=== PATIENT | female | born 1975 | race African-American/Black ===

== ENCOUNTER 2017-07-01 15:25 | Emergency (ER) | payer BC ==
[~2017-07-01] VITALS: Ht 170.2 cm; Wt 115.9 kg
[~2017-07-01 15:25] MED LIST: ALBU8I INH; LEVA750T PO; LISI20 PO; LORA10 PO; NIFE1TAB86 PO; PRED10 PO
[2017-07-01 15:26] VITALS: BP 161/79; PULSE 102; RESP 14; TEMP 98.5; O2SAT 100
[2017-07-01] MEDS ORDERED: FURO1TAB62 PO (15:47)
[2017-07-01] MEDS ORDERED: AMLO5TAB2 PO (15:47)
--- NOTE | 2017-07-01 16:07 | PD ---
HPI Chief Complaint: Cold / Flu Symptoms Time Seen by Provider: 15:44 Travel History International Travel<30 days: No Contact w/Intl Traveler<30days: No Traveled to known affect area: No History of Present Illness HPI 42-year-old female presents to the emergency room for evaluation of sore throat , headache, and body aches that started last night. Patient has had no associated congestion, cough, or objective fevers. States she has been taking Tylenol without significant relief in symptoms. States the headache is frontal , gradual onset, caused by her sore throat. She has been eating and drinking okay. 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.) Social History Alcohol Use: No Tobacco Use: No Substance Use: No Allergies-Medications (Allergen,Severity, Reaction): Coded Allergies: propoxyphene (Unverified Allergy, Severe, Hallucinations, 02/11/17) acetaminophen (Unverified Allergy, Intermediate, Hallucinations, 02/11/17) oxycodone (Unverified Allergy, Intermediate, Hallucinations, 02/11/17) *MDRO Multi-Drug Resistant Organism (Verified Allergy, Unknown, 07/11/15) MRSA (thigh wound) - 04/2005 MRSA PCR Screen NEGATIVE - 07/07/2015, 07/10/2015 CLEARED PER INFECTION CONTROL Reported Meds & Prescriptions Reported Meds & Active Scripts Active Reported Amlodipine (Amlodipine Besylate) 5 Mg Tab 5 Mg PO DAILY Lasix (Furosemide) 20 Mg Tab 25 Mg PO DAILY Review of Systems Except as stated in HPI: all other systems reviewed are Neg Physical Exam Narrative GENERAL: Well-nourished, well-developed female in no acute distress. Afebrile. Ambulatory. SKIN: Focused skin assessment warm/dry. HEAD: Normocephalic. EYES: No scleral icterus. No injection or drainage. ENT: Mucosa pink and moist. Moderate erythematous pharynx without significant edema. No uvular, palatal, or tonsillar deviation. Airway patent. Nasal turbinates appear normal without nasal blood, purulent drainage or septal hematoma. EARS: Bilateral pinnae and external canals appear within normal limits. Bilateral tympanic membranes without erythema, dullness or perforation. CARDIOVASCULAR: Regular rate and rhythm without murmurs, gallops, or rubs. RESPIRATORY: Breath sounds equal bilaterally. No accessory muscle use. No crackles, rales, wheezes, or rhonchi. Data Data Last Documented VS Vital Signs Date Time Temp Pulse Resp B/P (MAP) Pulse Ox O2 Delivery O2 Flow Rate FiO2 07/01/17 15:26 98.5 102 14 161/79 (106) 100 Orders Orders Group A Rapid Strep Screen (07/01/17 16:01) Strep Culture (Group A) (07/01/17 16:03) Ed Discharge Order (07/01/17 16:32) MDM Medical Decision Making Medical Screen Exam Complete: Yes Emergency Medical Condition: Yes Medical Record Reviewed: Yes Differential Diagnosis Strep throat, upper respiratory infection pneumonia, influenza Narrative Course 42-year-old female presents to the emergency room for evaluation of sore throat , headache, and body aches since last night. No objective fevers. Physical exam reveals moderate erythema of the pharynx without edema or exudates. Rapid strep is negative. This is viral pharyngitis. Patient discharged with Magic mouthwash and told to follow up with PCP or return for worsening symptoms. She understands and agrees to plan. Diagnosis Primary Impression: Viral pharyngitis Referrals: Primary Care Physician Additional Instructions: Magic mouthwash as directed, as needed for pain. Take ibuprofen with food as directed, as needed for pain. Follow-up with a primary care physician. Return to the emergency room for worsening symptoms. Disposition: 01 DISCHARGE HOME Condition: Stable Vianney Diamond Jul 01, 2017 16:07
[2017-07-01] MEDS ORDERED: MAGICPED SWISH-SWAL (16:34)
== END 2017-07-01 17:08 | disposition home or self-care (01) ==
LOC: NEPK 15:25
DX: J02.8 Acute pharyngitis due to other specified organisms (principal); B97.89 Other viral agents as the cause of diseases classified elsewhere; I10 Essential (primary) hypertension
CPT/HCPCS: 87081; 87880; 99283

== ENCOUNTER 2017-10-08 08:29 | Emergency (ER) | payer BC ==
[~2017-10-08] VITALS: Ht 170.2 cm; Wt 100.0 kg
[~2017-10-08 08:29] MED LIST changes: -ALBU8I INH; +AMLO5TAB2 PO; +FURO1TAB62 PO; -LEVA750T PO; -LISI20 PO; -LORA10 PO; +MAGICPED SWISH-SWAL; -NIFE1TAB86 PO; -PRED10 PO
[2017-10-08 08:40] VITALS: BP 197/104; PULSE 84; RESP 17; TEMP 98; O2SAT 100
--- NOTE | 2017-10-08 08:57 | PD ---
HPI Chief Complaint: ENT Complaint Time Seen by Provider: 08:47 Travel History International Travel<30 days: No Contact w/Intl Traveler<30days: No Traveled to known affect area: No History of Present Illness HPI 42-year-old female presents to the emergency department with complaint of sore throat, nasal congestion and chills since yesterday. Reports nausea without vomiting. Denies fever, cough, ear pain. Denies lump in throat, difficulty swallowing, unusual drooling. Reports painful swallowing. No others with similar symptoms. Rates sore throat 9/10. Worse with swallowing. Better with Luden sore throat drops. Has tried taking Claritin also. Allergies to Darvocet. Primary care provider is Dr. Reddy. History of hypertension and takes amlodipine 5 mg, which she has not taken this morning. Has no other medical complaints. No other modifying factors or associated signs and symptoms. PFSH Past Medical History Asthma: Yes Cancer: No Cardiovascular Problems: No Chest Pain: No Cerebrovascular Accident: No Diabetes: No Diminished Hearing: No Gastrointestinal Disorders: No Glaucoma: No Hepatitis: No Hiatal Hernia: No Hypertension: Yes Respiratory: Yes (asthma) Integumentary: No Myocardial Infarction: No Thyroid Disease: No ?: Not : 2 Para: 0 Miscarriage: 2 Past Surgical History Other Surgery: Yes (BENIGN TUMOR REMOVED FROM RIGHT BREAST AGE 18 [place] 1991.) Social History Alcohol Use: No Tobacco Use: No Substance Use: No Allergies-Medications (Allergen,Severity, Reaction): Coded Allergies: propoxyphene (Unverified Allergy, Severe, Hallucinations, 10/08/17) acetaminophen (Unverified Allergy, Intermediate, Hallucinations, 10/08/17) oxycodone (Unverified Allergy, Intermediate, Hallucinations, 10/08/17) *MDRO Multi-Drug Resistant Organism (Verified Allergy, Unknown, 10/08/17) MRSA (thigh wound) - 04/2005 MRSA PCR Screen NEGATIVE - 07/07/2015, 07/10/2015 CLEARED PER INFECTION CONTROL Reported Meds & Prescriptions Reported Meds & Active Scripts Active Reported Amlodipine (Amlodipine Besylate) 5 Mg Tab 5 Mg PO DAILY Lasix (Furosemide) 20 Mg Tab 25 Mg PO DAILY Review of Systems Except as stated in HPI: all other systems reviewed are Neg Physical Exam Narrative GENERAL: Well-nourished, well-developed black female patient, in no acute distress; afebrile, nontoxic-appearing SKIN: Warm and dry. No rash. HEAD: Atraumatic. Normocephalic. EYES: Pupils equal and round. No scleral icterus. No injection or drainage. ENT: Mucosa pink and moist. Oropharynx with erythema; without edema or exudates. No uvular edema. No uvular, palatal, or tonsillar deviation. Airway patent. EARS: Bilateral pinnae and external canals appear within normal limits. Bilateral tympanic membranes without erythema, dullness or perforation. NECK: Trachea midline. No lymphadenopathy. CARDIOVASCULAR: Regular rate and rhythm. No murmur appreciated. RESPIRATORY: No accessory muscle use. Clear to auscultation. Breath sounds equal bilaterally. No retractions or tachypnea. GASTROINTESTINAL: Abdomen soft, non-tender, nondistended. Hepatic and splenic margins not palpable. Bowel sounds are active 4 quadrants. MUSCULOSKELETAL: No obvious deformities. No clubbing. No cyanosis. No edema. NEUROLOGICAL: Awake and alert. Oriented 3. No obvious cranial nerve deficits. Motor grossly within normal limits. Normal speech. Moves all extremities. 5/5 strength to all extremities. PSYCHIATRIC: Appropriate mood and affect; insight and judgment normal. Data Data Last Documented VS Vital Signs Date Time Temp Pulse Resp B/P (MAP) Pulse Ox O2 Delivery O2 Flow Rate FiO2 10/08/17 08:40 98.0 84 17 197/104 (135) 100 Orders Orders Ibuprofen (Motrin) (10/08/17 09:00) Amlodipine (Norvasc) (10/08/17 09:00) Group A Rapid Strep Screen (10/08/17 08:54) Strep Culture (Group A) (10/08/17 08:52) [facility] Medical Decision Making Medical Screen Exam Complete: Yes Emergency Medical Condition: Yes Medical Record Reviewed: Yes Differential Diagnosis Strep pharyngitis, viral pharyngitis, viral illness, less likely peritonsillar abscess Narrative Course 42-year-old female with cold symptoms and complaining of sore throat. Patient is afebrile and nontoxic-appearing. Denies fever, vomiting. Ibuprofen and rapid strep ordered. Patient has history of hypertension and did not take her amlodipine 5 mg this morning. She is asymptomatic. Blood pressure is elevated in the ER. Amlodipine ordered. 941: Rapid strep negative. Patient is requesting antibiotics because last time she had her throat swabbed they called her after 2 days and said that she had strep throat culture and an antibiotic. I will prescribe antibiotics at patient's request. Amoxicillin, Magic mouthwash, ibuprofen prescribed for home. Instructed patient to follow up with primary care provider. Patient verbalizes understanding and agreement with treatment plan. Patient is medically cleared and stable for discharge. Discussed reasons to return to the emergency department. Patient agrees with treatment plan. The patients vital signs are stable and the patient is stable for outpatient follow-up and treatment. Patient discharged home, stable and in no acute distress. Diagnosis Primary Impression: Viral illness Referrals: [facility] Primary Care Physician Patient Instructions: General Instructions, Pharyngitis (ED) Departure Forms: Tests/Procedures, Work Release Enter return to work date: Oct 10, 2017 Additional Instructions: Take Antibiotics as prescribed and complete full course of antibiotics Throw away and change your toothbrush 24 hours after starting antibiotics Get plenty of sleep/rest Rest your voice Drink plenty of fluids to prevent dehydration Use warm saltwater gargles to soothe throat pain Use an air humidifier/turn off ceiling fans Use throat lozenges as needed for sore throat Use ibuprofen or acetaminophen as needed to relieve pain and fever Follow-up with your primary care provider within 2-4 days Return immediately to the emergency department with worsening of symptoms Med/Other Pt SpecificInfo: Prescription(s) given Scripts Ibuprofen (Ibuprofen) 800 Mg Tab 800 MG PO Q6HR Y for PAIN, #30 TAB 0 Refills Prov: Tosin Christian 10/08/17 Bwonhwybwqxwhid-Fwjuvnxlo-Ivg-Alum-Simeth Liq (Magic Mouthwash Pediatric/Adult Liq) 60 Ml Susp 5 ML SWISH-SWAL Q3HR Y for SORE THROAT, #60 ML 0 Refills Each 5mL contains: Diphenydramine 4.5mg, Viscous Lidocaine 2% 10mg, Maalox Advanced Regular Strength 2.7ml Prov: Tosin Christian 10/08/17 Amoxicillin (Amoxicillin) 500 Mg Cap 500 MG PO BID for Infection for 10 Days, #20 CAP 0 Refills Prov: Tosin Christian 10/08/17 Disposition: DISCHARGE HOME Condition: Stable Tosin Christian Oct 08, 2017 08:57
[2017-10-08] MEDS ORDERED: IBUPROFEN 800 MG TAB PO ONE (09:00)
[2017-10-08] MEDS ORDERED: amLODIPine BESYLATE 5 MG TAB PO ONE (09:00)
[2017-10-08] MEDS ORDERED: IBUP1TAB7 PO (09:40)
[2017-10-08] MEDS ORDERED: AMOX500C PO (09:40)
[2017-10-08] MEDS ORDERED: MAGICPED SWISH-SWAL (09:40)
[2017-10-08 09:50] VITALS: BP_SYST 150; BP_SYST 168; BP_DIAS 97; PULSE 98; RESP 14; O2SAT 98
== END 2017-10-08 10:06 | disposition home or self-care (01) ==
LOC: NEPD 08:29
DX: B34.9 Viral infection, unspecified (principal); I10 Essential (primary) hypertension; J45.909 Unspecified asthma, uncomplicated; Z79.899 Other long term (current) drug therapy; Z88.8 Allergy status to other drugs, medicaments and biological substances
CPT/HCPCS: 87081; 87880; 99283

== ENCOUNTER 2017-10-22 05:22 | Emergency (ER) | payer BC ==
[~2017-10-22] VITALS: Ht 170.2 cm; Wt 116.4 kg
[~2017-10-22 05:22] MED LIST changes: +AMOX500C PO; +IBUP1TAB7 PO
[2017-10-22 05:25] VITALS: BP 178/89; PULSE 95; RESP 18; TEMP 98.2; O2SAT 98
[2017-10-22] MEDS ORDERED: predniSONE 50 MG TAB PO ONE (05:45)
[2017-10-22] MEDS ORDERED: guaiFENesin/DEXTROMETHORPHAN 200 MG/20 MG/10 ML CUP PO ONE (05:45)
[2017-10-22] MEDS ORDERED: ONDANSETRON ODT 4 MG TAB PO ONE (05:45)
--- NOTE | 2017-10-22 05:53 | PD ---
HPI Chief Complaint: Cold / Flu Symptoms Time Seen by Provider: 05:33 Travel History International Travel<30 days: No Contact w/Intl Traveler<30days: No Traveled to known affect area: No History of Present Illness HPI 42yo F with PMH of asthma presents to the ED with c/o cough, throat pain for 2 days. Said she is losing her voice and that she felt sob today so started her nebulizer but felt nauseous and vomited. Pt feels a little sob and tightness in her chest like her asthma. Also feels sharp midsternal chest pain when she coughs. Denies any drooling, fever, abdominal pain, focal weakness or numbness. Took ibuprofen 2 days ago which helped with the pain. Pt was here 05/17 and diagnose with viral syndrome and discharge with amoxicillin and magic mouth wash. PFSH Past Medical History Asthma: Yes Heart Rhythm Problems: Yes (valve leaking in heart) Cancer: No Cardiovascular Problems: No Chest Pain: No Cerebrovascular Accident: No Diabetes: No Diminished Hearing: No Gastrointestinal Disorders: No Glaucoma: No Hepatitis: No Hiatal Hernia: No Hypertension: Yes Respiratory: Yes (asthma) Integumentary: No Myocardial Infarction: No Thyroid Disease: No Tetanus Vaccination: < 5 Years ?: Not LMP: 10/21/2017 : 2 Para: 0 Miscarriage: 2 Past Surgical History Other Surgery: Yes (BENIGN TUMOR REMOVED FROM RIGHT BREAST AGE 18 [place] 1991.) Social History Alcohol Use: No Tobacco Use: No Substance Use: No Allergies-Medications (Allergen,Severity, Reaction): Coded Allergies: propoxyphene (Unverified Allergy, Severe, Hallucinations, 10/22/17) *MDRO Multi-Drug Resistant Organism (Verified Allergy, Unknown, 10/22/17) MRSA (thigh wound) - 04/2005 MRSA PCR Screen NEGATIVE - 07/07/2015, 07/10/2015 CLEARED PER INFECTION CONTROL Reported Meds & Prescriptions Reported Meds & Active Scripts Active Ibuprofen 800 Mg Tab 800 Mg PO Q6HR PRN Magic Mouthwash Pediatric/Adult Liq (Lidocaine/Diphenhydr/Alum/Mg/Simeth) 60 Ml Susp 5 Ml SWISH-SWAL Q3HR PRN Each 5mL contains: Diphenydramine 4.5mg, Viscous Lidocaine 2% 10mg, Maalox Advanced Regular Strength 2.7ml Amoxicillin 500 Mg Cap 500 Mg PO BID 10 Days Reported Amlodipine (Amlodipine Besylate) 5 Mg Tab 5 Mg PO DAILY Lasix (Furosemide) 20 Mg Tab 25 Mg PO DAILY Review of Systems Except as stated in HPI: all other systems reviewed are Neg Physical Exam Narrative GENERAL: 42yo F in mild distress. SKIN: Focused skin assessment warm/dry. HEAD: Atraumatic. Normocephalic. EYES: Pupils equal and round. No scleral icterus. No injection or drainage. ENT: Throat: Uvula midline. Mild erythema. No exudate. NECK: No nuchal rigidity. No ttp anterior cervical lymph node. CARDIOVASCULAR: Regular rate and rhythm. No murmur appreciated. RESPIRATORY: No accessory muscle use. Clear to auscultation. Breath sounds equal bilaterally. GASTROINTESTINAL: Abdomen soft, non-tender, nondistended. MUSCULOSKELETAL: No obvious deformities. No clubbing. No cyanosis. No edema. NEUROLOGICAL: Awake and alert. No obvious cranial nerve deficits. Motor grossly within normal limits. Normal speech. PSYCHIATRIC: Appropriate mood and affect; insight and judgment normal. Data Data Last Documented VS Vital Signs Date Time Temp Pulse Resp B/P (MAP) Pulse Ox O2 Delivery O2 Flow Rate FiO2 10/22/17 05:25 98.2 95 18 178/89 (118) 98 Orders Orders Electrocardiogram (10/22/17 ) Chest, Single Ap (10/22/17 ) Albuterol-Ipratropium Neb (Duoneb Neb) (10/22/17 05:45) Prednisone (Deltasone) (10/22/17 05:45) Ondansetron Odt (Zofran Odt) (10/22/17 05:45) Guaifen-Dm 200-20 Mg/10 Ml Liq (Robituss (10/22/17 05:45) Influenzae A/B Antigen (10/22/17 05:42) MDM Medical Decision Making Medical Screen Exam Complete: Yes Emergency Medical Condition: Yes Interpretation(s) EKG: Sinus tachycardia at 111bpm. Normal axis. LVH. TWI V5, V6, not new. Differential Diagnosis Bronchitis vs. URI vs. pneumonia vs. asthma exacerbation vs. pharyngitis Narrative Course 42yo F with URI like symptoms. Pt only with chest pain when she coughs. Do not think this is cardiac. Influenza negative. CXR showed no acute disease. Pt given duonebs x3 and prednisone as well as robitussin. Pt feels better and wants to go home. Diagnosis Primary Impression: URI (upper respiratory infection) Qualified Codes: J06.9 - Acute upper respiratory infection, unspecified Patient Instructions: General Instructions Departure Forms: Tests/Procedures Additional Instructions: Please follow up with your primary care physician in 2-3 days. Return to the ED if symptoms worsen. Med/Other Pt SpecificInfo: Prescription(s) given Scripts Dextromethorphan (Robitussin Lingering Cold) 15 Mg Cap 30 MG PO Q8H Y for COUGH for 5 Days, #30 CAP 0 Refills Prov: Hawa Lima DO 10/22/17 Prednisone (Prednisone) 50 Mg Tab 50 MG PO DAILY for 5 Days, #5 TAB 0 Refills Prov: Hawa Lima DO 10/22/17 Albuterol 18 GM Inh (Ventolin Hfa 18 GM Inh) 90 Mcg/Act Aer 2 PUFF INH Q4H Y for SHORTNESS OF BREATH, #1 INHALER 0 Refills Prov: Hawa Lima DO 10/22/17 Disposition: 01 DISCHARGE HOME Condition: Stable Hawa Lima DO Oct 22, 2017 05:53
[2017-10-22] MEDS: RESP: ALBUTEROL 2.5 MG/IPRATROPIUM 0.5 MG NEB (SCH) INH ×2 (06:07→06:08)
--- NOTE | 2017-10-22 06:09 | RADRPT ---
EXAM DATE/TIME: 10/22/2017 05:50 [facility] COMPARISON: CHEST SINGLE AP, July 08, 2015, 3:33. INDICATIONS : Cough, sore throat. MEDICAL HISTORY : None. SURGICAL HISTORY : None. ENCOUNTER: Initial ACUITY: 1 day PAIN SCORE: 0/10 LOCATION: Bilateral chest FINDINGS: A single view of the chest demonstrates the lungs to be symmetrically aerated without evidence of mas s, infiltrate or effusion. The cardiomediastinal contours are unremarkable. Osseous structures are intact. CONCLUSION: No acute disease. Tushar Zimmerman MD on October 22, 2017 at 6:07 Board Certified Radiologist. This report was verified electronically.
[2017-10-22] MEDS ORDERED: ROBICAP2 PO (06:53)
[2017-10-22] MEDS ORDERED: VENTAER INH (06:53)
[2017-10-22] MEDS ORDERED: PRED50 PO (06:53)
[2017-10-22 07:03] VITALS: BP 184/96
--- NOTE | 2017-10-22 08:46 | EKG ---
Date Performed: 10/22/2017 Time Performed: 06:36:50 PTAGE: 42 years EKG: SINUS TACHYCARDIA WITH OCCASIONAL VENTRICULAR PREMATURE COMPLEXES VOLTAGE CRITERIA FOR LVH NONSPECIFIC T-WAVE ABNORMALITY ABNORMAL ECG NO PREVIOUS TRACING DOCTOR: Jakub Cabrales Interpretating Date/Time 10/22/2017 08:45:02
== END 2017-10-22 07:05 | disposition home or self-care (01) ==
LOC: NEPC 05:22
DX: J06.9 Acute upper respiratory infection, unspecified (principal); R05 Cough; R06.02 Shortness of breath; R11.2 Nausea with vomiting, unspecified; R07.9 Chest pain, unspecified; R94.31 Abnormal electrocardiogram [ECG] [EKG]; I10 Essential (primary) hypertension; Z87.09 Personal history of other diseases of the respiratory system; Z86.79 Personal history of other diseases of the circulatory system
CPT/HCPCS: 71045; 87804; 93005; 94640; 94664; 99284; J7512